=== PATIENT | male | born 1965 | race Caucasian/White ===

== ENCOUNTER → 2019-11-04 | Outpatient (CLI) | payer BC | END | disposition home or self-care (01) | LOC: ROC 07:44 | PROVIDERS: ATTEND Radiology Radiation Oncology | DX: C61 Malignant neoplasm of prostate (principal); I10 Essential (primary) hypertension | CPT/HCPCS: 99214; G0463 ==

== ENCOUNTER 2019-11-15 07:35 | Outpatient (CLI) | payer BC ==
[2019-11-15] MEDS ORDERED: LIDOCAINE/PF 1%, 30ML IV ONE (09:35)
[2019-11-15] MEDS ORDERED: MIDAZOLAM 1 MG/ML, 5ML IVPush ONE (09:35)
[2019-11-15] MEDS ORDERED: FENTANYL PF 100 MCG/2ML IVPush ONE (09:35)
== END 2019-11-15 23:59 | disposition home or self-care (01) ==
LOC: ROC 07:35
PROVIDERS: ATTEND Radiology Radiation Oncology
DX: C61 Malignant neoplasm of prostate (principal); I10 Essential (primary) hypertension; F17.210 Nicotine dependence, cigarettes, uncomplicated; Z88.8 Allergy status to other drugs, medicaments and biological substances
CPT/HCPCS: 55876; 76942; 77332; 99156; A4648; J2250; J3010; J3490

== ENCOUNTER → 2019-11-21 | Outpatient (CLI) | payer BC | END | disposition home or self-care (01) | LOC: CFH 13:16 | PROVIDERS: ATTEND Radiology Radiation Oncology | DX: C61 Malignant neoplasm of prostate (principal) | CPT/HCPCS: 72195 ==

== ENCOUNTER 2020-03-26 07:24 | Outpatient (CLI) | payer BC | END 2020-03-26 23:59 | disposition home or self-care (01) | LOC: ROC 07:24 | PROVIDERS: ATTEND Radiology Radiation Oncology | DX: Z08 Encounter for follow-up examination after completed treatment for malignant neoplasm (principal); Z85.46 Personal history of malignant neoplasm of prostate | CPT/HCPCS: 99212; G0463 ==